=== PATIENT | male | born 1955 | race Hispanic/Latino ===

== ENCOUNTER 2020-06-08 18:43 | Emergency (ER) | payer SELFPAY ==
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
--- NOTE | 2020-06-08 22:02 | XRay Report ---
LEFT KNEE, 4 VIEWS INDICATION / CLINICAL INFORMATION: left knee pain. COMPARISON: None available. FINDINGS: There is mild prepatellar soft tissue edema. No visible fracture or dislocation. No joint effusion. V roverto mild degenerative change is present. IMPRESSION: Mild prepatellar soft tissue swelling. No other significant finding. Signer Name: Constanza Headley MD Signed: 06/08/2020 9:58 PM Workstation Name: [id number]
[2020-06-08 22:30] VITALS: BP 166/92
== END 2020-06-08 22:30 | disposition home or self-care (01) ==
LOC: ED 18:43
DX: M25.562 Pain in left knee (principal); R03.0 Elevated blood-pressure reading, without diagnosis of hypertension; I11.0 Hypertensive heart disease with heart failure; I50.9 Heart failure, unspecified; F17.200 Nicotine dependence, unspecified, uncomplicated; Z98.890 Other specified postprocedural states; Z79.899 Other long term (current) drug therapy

== ENCOUNTER 2021-08-21 05:59 | Emergency (ER) | payer SELFPAY ==
[2021-08-21 06:04] VITALS: BP 144/90
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
[2021-08-21 08:07] LABS: Basophils % (Auto) 0.4 % (0.0-1.8); Eosinophils % (Auto) 0.6 % (0.0-4.3); Hematocrit 36.4 % (35.5-45.6); Lymphocytes # (Auto) 1.2 K/mm3 (1.2-5.4); Lymphocytes % (Auto) 22.7 % (13.4-35.0); Mean Corpuscular HGB Conc 36 % (32-34); Mean Corpuscular Volume 97 fl (84-94); Monocytes # (Auto) 0.7 K/mm3 (0.0-0.8); Monocytes % (Auto) 13.1 % (0.0-7.3); Platelet Count 104 K/mm3 (140-440); Red Blood Count 3.74 M/mm3 (3.65-5.03)
[2021-08-21 08:25] LABS: Calcium 9.7 mg/dL (8.4-10.2)
--- NOTE | 2021-08-21 11:36 | Consultation ---
History of Present Illness - Reason for Consult Consult date: 08/21/21 Reason for consult: mental health evaluation - History of Present Psychiatric Illness The patient is a 65 year old male with history of schizophrenia, and bipolar who presents to the ED for mental health evaluation. The patient was seen today. He is calm, alert and oriented x3. He reports ongoing auditory and visual hallucinations that worsened x 2 days ; he reports a history of methamphetamines abuse, stating he last used 2 days ago. He reports noncompliant with psychotropic medications. The patient denies any current suicidal/homicidal ideation. PAST PSYCHIATRIC HISTORY: Diagnoses:Schizophrenia, bipolar Suicide attempts or Self-harm behavior:Denies Prior psychiatric hospitalizations: Yes Substance Abuse history: Meth, marijuana Previous psychiatric medications tried:Zyprexa Outpatient treatment:Unknown PAST MEDICAL HISTORY: None reported or document Family Psychiatric History: None reported or documented SOCIAL HISTORY Marital Status: single Living Arrangements: Lives alone Employment Status:Unemployed Access to guns/weapons: Denies Education:some Unknown History of Abuse: Denies Legal History: Denies REVIEW OF SYSTEMS Constitutional: Negative for weight loss ENT: Negative for stridor Respiratory: Negative for cough or hemoptysis All other systems reviewed and are negative MENTAL STATUS EXAMINATION General Appearance and Behavior: Age appropriate, wearing appropriate clothes, cooperative, polite with questioning, good eye contact, calm, polite Cooperation: cooperative Psychomotor Behavior: Psychomotor normal Mood: Calm Affect and affective range: Congruent with stated mood Thought Process: Goal directed Thought Content:hallucinations Speech: Normal volume, Regular rate and rhythm Suicidal Ideation: Denies Homicidal Ideation: Denies Hallucination: Auditory/visual Delusions: None Impulse Control: limited Insight and Judgment: Limited Memory: intact Attention: attentive Orientation: Alert and oriented Diagnoses: (1) Schizophrenia (2) Treatment Plan Continue home meds Zyprexa 7.5mg po QHS PSYCHOTHERAPY: Supportive psychotherapy provided MEDICAL: Per primary team DELIRIUM PRECAUTIONS: Please re-orient patient frequently, keep lights on during the day, and minimize benzodiazepines and opiates as these medications could worsen patient's confusion. CORPORATE OFFICER: Per medical team DISPOSITION:Do not recommend acute psychiatric inpatient treatment. [facility] will provide patient with outpatient resources. Will sign off. Thank you for the consult. Case staffed with Dr. Beebe Medications and Allergies Medications and Allergies Allergies Allergy/AdvReac Type Severity Reaction Status Date / Time No Known Allergies Allergy Unverified 06/08/20 19:24 Home Medications Medication Instructions Recorded Confirmed Last Taken Type Naproxen [EC-Naproxen] 500 mg PO BID PRN #14 tablet. 06/08/20 Unknown Rx amLODIPine 10 mg PO DAILY #30 tab 06/08/20 Unknown Rx hydroCHLOROthiazide [HCTZ] 25 mg PO QDAY #30 tablet 06/08/20 Unknown Rx OLANzapine [ZyPREXA] 7.5 mg PO DAILY 30 Days #30 tablet 08/21/21 Unknown Rx Mental Status Exam - Vital signs Last Vital Signs Temp 98.3 F 08/21/21 06:02 Pulse 104 H 08/21/21 06:02 Resp 16 08/21/21 06:02 BP 144/90 08/21/21 06:02 Pulse Ox 96 08/21/21 06:02 Results Result Diagrams: 08/21/21 07:44 08/21/21 07:44 Abnormal lab results 08/21/21 08/21/21 08/21/21 Range/Units 07:44 07:44 07:44 MCV 97 H (84-94) fl MCH 35 H (28-32) pg MCHC 36 H (32-34) % RDW 16.0 H (13.2-15.2) % Plt Count 104 L (140-440) K/mm3 Coffey % (Auto) 13.1 H (0.0-7.3) % Sodium 135 L (137-145) mmol/L Potassium 3.2 L (3.6-5.0) mmol/L Chloride 92.2 L (98-107) mmol/L Creatinine 2.2 H (0.8-1.3) mg/dL Glucose 104 H (75-100) mg/dL Salicylates < 0.3 L (2.8-20.0) mg/dL Acetaminophen (10.0-30.0) ug/mL 08/21/21 Range/Units 07:44 MCV (84-94) fl MCH (28-32) pg MCHC (32-34) % RDW (13.2-15.2) % Plt Count (140-440) K/mm3 Coffey % (Auto) (0.0-7.3) % Sodium (137-145) mmol/L Potassium (3.6-5.0) mmol/L Chloride (98-107) mmol/L Creatinine (0.8-1.3) mg/dL Glucose (75-100) mg/dL Salicylates (2.8-20.0) mg/dL Acetaminophen 5.0 L (10.0-30.0) ug/mL All other labs normal.
[2021-08-21] MEDS ORDERED: POTASSIUM CHLORIDE ER 20 MEQ TAB PO ONE (15:08)
== END 2021-08-21 16:00 | disposition home or self-care (01) ==
LOC: EEVIPCON 05:59 → ED 05:59
DX: R44.0 Auditory hallucinations (principal); R44.1 Visual hallucinations; E87.6 Hypokalemia; R79.89 Other specified abnormal findings of blood chemistry; I11.0 Hypertensive heart disease with heart failure; I50.9 Heart failure, unspecified; Z79.899 Other long term (current) drug therapy; F17.200 Nicotine dependence, unspecified, uncomplicated
CPT/HCPCS: 36415; 80048; 80320; 84443; 85025; 99283; G0480